=== PATIENT | male | born 1960 | race Caucasian/White ===

== ENCOUNTER 2021-06-07 08:16 | Emergency (ER) | payer BC ==
[2021-06-07] MEDS ORDERED: LISINOP/HCTZ1 TA1 PO (09:36)
[2021-06-07] MEDS ORDERED: TURMERI1 PO (09:37)
[2021-06-07] MEDS ORDERED: B COMPLE2 PO (09:37)
[2021-06-07] MEDS ORDERED: ADLT ASA LOW81 MG PO (09:37)
[2021-06-07] MEDS ORDERED: CLOMIPHENE CITR50 MG PO (09:38)
[2021-06-07 10:00] VITALS: BP 133/89
== END 2021-06-07 10:00 | disposition home or self-care (01) | DRG 153 ==
LOC: ED 08:16
DX: J30.1 Allergic rhinitis due to pollen (principal); I10 Essential (primary) hypertension; E78.5 Hyperlipidemia, unspecified; Z20.822 Contact with and (suspected) exposure to COVID-19